=== PATIENT | female | born 1985 | race Caucasian/White ===

== ENCOUNTER 2021-07-30 09:03 | Emergency (ER) | payer OTHER ==
[~2021-07-30] VITALS: Ht 157.5 cm; Wt 61.8 kg
[2021-07-30 09:36] LABS: BASO # 0.1 K/mm3 (0.0-0.2); BASO % 0.4 % (0.0-2.0); EOS % 0.3 % (0-4.0); GRAN # 9.7 K/mm3 (1.4-6.5); GRAN % 80.8 % (42.2-75.2); HEMATOCRIT 43.7 % (37.0-47.0); HEMOGLOBIN 14.9 g/dl (12.5-16.0); LYMPH # 1.5 K/mm3 (1.2-3.4); LYMPH % 12.1 % (20.0-51.0); MEAN CELL VOLUME 92 fl (80.0-100.0); MEAN CORPUSCULAR HEMOGLOBIN 31 pg (27.0-31.0); MEAN CORPUSCULAR HGB CONC 34 g/dl (33.0-37.0); MEAN PLATELET VOLUME 10.5 fl (7.4-10.4); MONO # 0.7 K/mm3 (0.1-0.6); PLATELET COUNT 243 K/mm3 (130-400); RED BLOOD COUNT 4.76 M/mm3 (4.10-5.30); REDCELL DISTRIBUTION WIDTH-CV 11.9 % (11.5-14.5)
[2021-07-30 09:53] LABS: ALBUMIN 4.6 gm/dL (3.5-5.0); BILIRUBIN,TOTAL 0.8 mg/dL (0.2-1.2); CALCIUM 9.8 mg/dL (8.4-10.2); CREATININE, serum 0.65 mg/dL (0.57-1.11); POTASSIUM 3.6 mmol/L (3.5-4.5); TOTAL PROTEIN 7.6 gm/dL (6.2-8.1)
[2021-07-30 10:54] LABS: COLLECTION METHOD CLEAN CATCH
[2021-07-30 11:08] LABS: PH 8 (5-8); SQUAMOUS EPITHELIAL None Seen /hpf; URINE APPEARANCE Cloudy; URINE BACTERIA Rare /hpf; URINE BILIRUBIN Negative (NEGATIVE); URINE BLOOD 3+ (NEGATIVE); URINE COLOR Red; URINE GLUCOSE Negative (NEGATIVE); URINE KETONE Negative (NEGATIVE); URINE LEUKOCYTE ESTERASE 1+ (NEGATIVE); URINE NITRATE Negative (NEGATIVE); URINE PROTEIN(semi-quant) 2+ (NEGATIVE); URINE UROBILINOGEN Negative (NEGATIVE)
[2021-07-30 13:05] VITALS: BP 131/83; PULSE 82; TEMP 98.2
== END 2021-07-30 13:05 | disposition home or self-care (01) ==
LOC: COL.ER 09:03
PROVIDERS: Emergency Medicine
DX: O46.91 Antepartum hemorrhage, unspecified, first trimester (principal); Z3A.01 Less than 8 weeks gestation of pregnancy
CPT/HCPCS: J7030

== ENCOUNTER 2023-07-29 01:33 | Inpatient (IN) | payer OTHER ==
[2023-07-29] VITALS (40 sets, daily range): BP systolic 100–145; BP diastolic 53–89; PULSE 79–107; TEMP 97.4–98.2
[~2023-07-29] VITALS: Ht 160 cm; Wt 91.8 kg
[2023-07-29] MEDS ORDERED: AMOXICILLIN 50500 MG PO (02:04)
[2023-07-29] MEDS ORDERED: PRENATAL 19 TA1 EAC1 PO (02:05)
[2023-07-29] MEDS ORDERED: ZYRTEC5 MG PO (02:08)
--- NOTE | 2023-07-29 02:36 | NUR ---
0145- PATIENT ARRIVED TO UNIT VIA WHEELCHAIR. STATES SHE STARTED HAVING CONTRACTIONS AT 1600. DENIES LEAKING OF FLUID OR VAGINAL BLEEDING. PATIENT CHANGED INTO HOSPITAL GOWN. EFMX2. SVE 2.
--- NOTE | 2023-07-29 03:36 | NUR ---
0259- PATIENT REQUESTED TO SIT ON BIRTHING BALL. 0336- PATIENT BACK TO BED. EFMX2. PATIENT SEMIFOWLERS.
[2023-07-29 04:02] LABS: BASO % 0.3 % (0.0-2.0); EOS % 0.3 % (0.0-4.0); GRAN % 79.8 % (42.2-75.2); HEMATOCRIT 39.2 % (37.0-47.0); HEMOGLOBIN 13.6 g/dl (12.5-16.0); LYMPH # 1.7 K/mm3 (1.2-3.4); LYMPH % 13.2 % (20.0-51.0); MEAN CELL VOLUME 93 fl (80.0-100.0); MEAN CORPUSCULAR HEMOGLOBIN 32 pg (27-31); MEAN CORPUSCULAR HGB CONC 35 g/dl (33.0-37.0); MEAN PLATELET VOLUME 10.8 fl (7.4-10.4); MONO # 0.7 K/mm3 (0.1-0.6); MONO % 5.8 % (1.7-9.3); PLATELET COUNT 217 K/mm3 (130-400); RED BLOOD COUNT 4.24 M/mm3 (4.10-5.30); REDCELL DISTRIBUTION WIDTH-CV 12.8 % (11.5-14.5)
--- NOTE | 2023-07-29 05:39 | NUR ---
0357- PATIENT REQUESTED TO SIT ON BIRTHING BALL 0428- PATIENT BACK TO BED. EFMX2. PATIENT SITTING ON EDGE OF BED. DIFFICULTY TRACING HEART RATE DUE TO MATERNAL POSITIONING. PULSE OX APPLIED. 0429- BUSHRA EMBEDDED DEVELOPER EXPLAINS PROCEDURE AND RISK OF EPIDURAL. 0441- SINGLE SHOT ADMINISTERED BY BUSHRA CARNES. SEE ANESTHESIA RECORDS. 0448- PATIENT REPOSITIONED IN SEMIFOWLERS. PLAN OF CARE AND SAFETY PRECAUTIONS EXPLAINED TO PATIENT AND FAMILY. 0500- DR. LIEBERMAN AT BEDSIDE. SVE /-1. DR. LIEBERMAN TALKED TO PATIENT ABOUT AROM. PATIENT VERBALIZES UNDERSTANDING AND AGREES WITH AROM. 0503- AROM BY DR. LIEBERMAN.
--- NOTE | 2023-07-29 06:45 | NUR ---
AT 0640 THIS RN WAS AT BEDSIDE WHEN FHT AUDIBLY DECELED INTO THE 80'S. MOM WAS IMMEADIATLY TURNED TO LL POSITION AND FHT WERE IN THE 120'S. FLUID BOLUS STARTED.
--- NOTE | 2023-07-29 07:53 | NUR ---
0753 [facility] AND HAD AN EARLY DECEL THAT WAS AUDIBLE TO THIS RN AT BEDSIDE INTO THE 90'S. READJUSTED FHT MONITOR AND STARTED TRACING FHT AGAIN IN THE 120'S, BUT HAD A LATE DECEL RIGHT AT THE END OF CX DOWN TO 110.
--- NOTE | 2023-07-29 09:47 | NUR ---
AT 0947 FHT DECELERATED FROM 130 TO 80'S. THIS RN AT BEDSIDE AND CHARGE TRIED TO REPOSITION PT TO LL THEN RL AND BACK TO LL WITHOUT BEING ABLE TO TRACE FHT'S. PT WAS THEN MOVED TO HANDS AND KNEES AT 0952 AND WE WERE ABLE TO TRACE FHT'S IN THE 100'S AND 110'S. AT 0955 DR ROLES WAS AT BEDSIDE AND DETERMINED THAT PT HAD AN ANTERIOR LIP. FHT RETURNED TO 120'S IN SEMIFOWLERS, DR ROLES WAS COMFORTABLE ALLOWING PT TO CONTINUE TO LABOR IN THAT POSITION LONG BABY DID WELL.
--- NOTE | 2023-07-29 11:02 | NUR ---
1042- ROLES ON UNIT AND AT BEDSIDE. SVE COMPLETE/100/+1. 1044- FIDEL HENDRIX. [id number]- PT DID NOT FEEL AND MONITORS DID NOT SHOW ANY CX ACTIVITY. 1053- PT PUSHED ONE TIME. 1102- PT HAD NEXT CX. SPONTANEOUS VAGINAL DELIVERY OF A VIABLE MALE WITH A NUCHAL CORD X1 WAS DELIVERED BY DR LIEBERMAN. BABY WAS PLACED ON MOM, FOB CUT THE CORD. CARE OF BABY WAS TAKEN OVER BY NURSERY NURSE. 1107- SPONTANEOUS DELIVERY OF THE PLACENTA ASSISSTED BY DR LIEBERMAN. PITOCIN STARTED PER PROTOCOL. DR LIEBERMAN THEN BEGAN SMALL VAGINAL REPAIR. [address] LIEBERMAN. AFTER DELIVERY PT VITAL SIGNS WNL. MINIMAL BLEEDING NOTED.
[2023-07-30 03:00] VITALS: BP 110/73; PULSE 71; TEMP 97.5
[2023-07-30 09:00] VITALS: BP 115/77; PULSE 80; TEMP 97.5
[2023-07-30] MEDS ORDERED: IBU800 M1 PO (09:31)
--- NOTE | 2023-07-30 12:30 | NUR ---
Discharge instructions and follow up care reviewed with pt and at the bedside. Both verbalized an understanding, agreed with the plan and states no questions or concerns at this time.
== END 2023-07-30 13:10 | disposition home or self-care (01) | DRG 807 ==
LOC: LDR 01:33 → LDRO 01:33 → LDR 01:45 → LDRO 01:47 → LDR 03:05 → OB 03:05 → LDR 03:08 → OB 14:00
PROVIDERS: Obstetrics & Gynecology; ADMIT Obstetrics & Gynecology
PROC: 10E0XZZ Delivery of Products of Conception, External Approach (ICD-10-PCS; principal; 2023-07-29)
PROC: 10907ZC Drainage of Amniotic Fluid, Therapeutic from Products of Conception, Via Natural or Artificial Opening (ICD-10-PCS; 2023-07-29)
PROC: 0KQM0ZZ Repair Perineum Muscle, Open Approach (ICD-10-PCS; 2023-07-29)
DX: O99.824 Streptococcus B carrier state complicating childbirth (principal); Z37.0 Single live birth; O70.1 Second degree perineal laceration during delivery; O69.81X0 Labor and delivery complicated by cord around neck, without compression, not applicable or unspecified; Z3A.39 39 weeks gestation of pregnancy
CPT/HCPCS: J2405; J2540; J2590; J2795; J7120